=== PATIENT | female | born 1950 | race Caucasian/White ===

== ENCOUNTER 2017-05-19 17:31 | Emergency (ER) | payer OTHER ==
[2017-05-19] MEDS ORDERED: DIPH,PERTUSS(ACELL),TET PED/PF 0.5 ML VIAL IM ONE (17:46)
[2017-05-19] MEDS ORDERED: TDAP ADULT 0.5 ML INJ (BOOSTRIX) IM ONE (17:52)
[2017-05-19] MEDS ORDERED: LET GEL TOPICAL 1 EA SYR TP ONE (18:16)
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
[2017-05-19 19:36] VITALS: BP 105/68; PULSE 72; RESP 16; TEMP 97.9; O2SAT 96
== END 2017-05-19 19:38 | disposition home or self-care (01) ==
DX: S82.64XA Nondisplaced fracture of lateral malleolus of right fibula, initial encounter for closed fracture (principal); T14.8 Other injury of unspecified body region; Z23 Encounter for immunization; V29.40XA Motorcycle driver injured in collision with unspecified motor vehicles in traffic accident, initial encounter; Y92.410 Unspecified street and highway as the place of occurrence of the external cause; Y99.8 Other external cause status; Y93.89 Activity, other specified
CPT/HCPCS: 73610; 90471; 90700; 99283; L4386

== ENCOUNTER → 2018-08-08 | Outpatient (CLI) | payer OTHER | LOC: FIMAGING 16:07 | PROVIDERS: ATTEND Family Medicine | DX: Z12.31 Encounter for screening mammogram for malignant neoplasm of breast (principal) ==